=== PATIENT | female | born 1975 | race Caucasian/White ===

== ENCOUNTER → 2017-01-18 | Outpatient (CLI) | payer OTHER | END | disposition home or self-care (01) | LOC: CFH 13:23 | PROVIDERS: ATTEND Family Medicine | DX: N20.0 Calculus of kidney (principal); Z90.49 Acquired absence of other specified parts of digestive tract | CPT/HCPCS: 74176 ==

== ENCOUNTER → 2017-01-24 | Outpatient (CLI) | payer OTHER | END | disposition home or self-care (01) | LOC: CFH 11:04 | PROVIDERS: ATTEND Family Medicine | DX: I34.0 Nonrheumatic mitral (valve) insufficiency (principal); Z82.49 Family history of ischemic heart disease and other diseases of the circulatory system | CPT/HCPCS: 93306 ==

== ENCOUNTER → 2018-11-16 | Outpatient (CLI) | payer OTHER | END | disposition home or self-care (01) | LOC: RAD 14:45 | PROVIDERS: ATTEND Family Medicine | DX: N20.0 Calculus of kidney (principal); N83.202 Unspecified ovarian cyst, left side; K43.9 Ventral hernia without obstruction or gangrene | CPT/HCPCS: 74176 ==